=== PATIENT | female | born 1965 | race Caucasian/White ===

== ENCOUNTER 2021-08-26 17:08 | Inpatient (IN) | payer OTHER ==
[~2021-08-26] VITALS: Ht 157.5 cm; Wt 50.7 kg
[2021-08-26] MEDS ORDERED: MORPHINE SULFATE 4 MG/ML SYRINGE IVP ONE (17:15)
[2021-08-26 17:44] LABS: BASOPHILS % (AUTO) 0.2 % (0.0-2.0); EOSINOPHILS % (AUTO) 0.3 % (1.0-6.0); HEMATOCRIT 42.3 % (36-46); HEMOGLOBIN 14.5 g/dL (12.0-16.0); LYMPHOCYTES # (AUTO) 0.6 K/uL (1.0-4.8); MEAN CORPUSCULAR HEMOGLOBIN 32.2 pg (26.0-34.0); MEAN CORPUSCULAR HGB CONC 34.3 G/dL (31.0-37.0); MEAN CORPUSCULAR VOLUME 94 fL (80-100); MONOCYTES # (AUTO) 0.2 K/uL (0.1-1.0); MONOCYTES % (AUTO) 7.5 % (2.0-9.0); NEUTROPHILS # (AUTO) 2.2 K/uL (1.8-7.7); PLATELET COUNT (AUTO) 163 K/uL (150-450); RED BLOOD CELL COUNT(AUTO) 4.51 MIL/uL (4.00-5.20); RED CELL DISTRIBUTION WIDTH 13.4 % (11.5-14.5)
[2021-08-26] MEDS ORDERED: ATORVASTATIN CALCIUM 40 MG TABLET PO ONE (17:45)
[2021-08-26 17:52] LABS: ANION GAP 6 mmol/L (8-16); CALCIUM, TOTAL 8.9 mg/dL (8.8-10.5); CARBON DIOXIDE 31 mmol/L (22-29); CHLORIDE 99 mmol/L (98-107); CREATININE 0.94 mg/dL (0.60-1.30); GLOMERULAR FILTR. RATE CALC > 60 mL/min (>60); GLUCOSE,RANDOM 91 mg/dL (70-110); POTASSIUM 3.1 mmol/L (3.5-5.1); SODIUM SERUM 136 mmol/L (136-145); UREA NITROGEN, BLOOD 8 mg/dL (7-18)
[2021-08-26 17:55] LABS: D-DIMER 0.2 mg/L FEU (0.00-0.50); PROTHROMBIN TIME 10.6 SEC (9.4-11.6)
[2021-08-26 18:02] LABS: B-TYPE NATRIURETIC PEPTIDE 108 pg/mL (0-100)
[2021-08-26] MEDS ORDERED: MIDAZOLAM HCL 2 MG/2 ML VIAL ONE (18:09)
[2021-08-26 18:18] LABS: ALANINE AMINOTRANSFERASE 22 U/L (12-78); ALBUMIN 4.1 g/dL (3.4-5.0); ALKALINE PHOSPHATASE 75 U/L (46-116); ASPARTATE AMINOTRANSFERASE 20 U/L (15-37); BILIRUBIN,TOTAL 0.5 mg/dL (0.1-1.0); CREATINE KINASE, TOTAL ONLY 105 U/L (26-192); TOTAL PROTEIN, SERUM 7.5 g/dL (6.4-8.2)
[2021-08-26] MEDS ORDERED: NITROGLYCERIN/D5W 50 MG/250 ML IV BOTTLE IARTER ONE (18:30)
[2021-08-26] MEDS ORDERED: SODIUM CHLORIDE 0.9% 500 ML IV ONE (18:30)
[2021-08-26] MEDS ORDERED: LIDOCAINE 1% 30 ML/SOD BICARB 8.4% 4 ML SQ ONE (18:30)
[2021-08-26] MEDS ORDERED: IOHEXOL 300 MG/ML 150 ML VIAL IARTER ONE (18:30)
[2021-08-26] MEDS ORDERED: IOHEXOL 300 MG/ML 50 ML VIAL IARTER ONE (18:30)
[2021-08-26] MEDS ORDERED: VERAPAMIL HCL 2.5 MG/ML 2 ML VIAL IARTER ONE (18:30)
[2021-08-26] MEDS ORDERED: HEPARIN SODIUM,PORCINE 1,000 UNITS/ML 10 ML VIAL IARTER ONE (18:30)
[2021-08-26] MEDS ORDERED: HEPARIN SODIUM 1000 UNITS/NS 1,000 ML IARTER ONE (18:30)
[2021-08-26] MEDS ORDERED: HEPARIN SODIUM 1000 UNITS/NS 1,000 ML ONE (19:13)
[2021-08-26] MEDS ORDERED: SODIUM BICARBONATE 50 MEQ/50 ML VIAL ONE (19:13)
[2021-08-26] MEDS ORDERED: IOHEXOL 300 MG/ML 150 ML VIAL ONE (19:13)
[2021-08-26] MEDS ORDERED: IOHEXOL 300 MG/ML 50 ML VIAL ONE (19:13)
[2021-08-26] MEDS ORDERED: IOHEXOL 300 MG/ML 100 ML VIAL ONE (19:13)
[2021-08-26] MEDS ORDERED: LIDOCAINE/PF 1% 30 ML VIAL ONE (19:13)
[2021-08-26 20:00] VITALS: BP 95/52
[2021-08-26] MEDS ORDERED: ZOLPIDEM TARTRATE 5 MG TABLET PO PRN (22:30)
[2021-08-26] MEDS ORDERED: POTASSIUM CHLORIDE 20 MEQ ER TABLET PO PRN (22:30)
[2021-08-26] MEDS ORDERED: ONDANSETRON HCL 4 MG/2 ML VIAL IVP PRN (22:30)
[2021-08-26] MEDS ORDERED: POTASSIUM CHL 10 MEQ/WATER 50 ML IV PRN (22:30)
[2021-08-26] MEDS ORDERED: MAGNESIUM HYDROXIDE SUSPENSION 30 ML UDCUP PO PRN (22:30)
[2021-08-26] MEDS ORDERED: BISACODYL 10 MG RECTAL RECTAL SUPPOSITORY PR PRN (22:30)
[2021-08-27] VITALS (7 sets, daily range): BP systolic 120–150; BP diastolic 49–95
[2021-08-27] MEDS: ACETAMINOPHEN 325 MG TABLET PO PRN ×3 (01:36→16:41)
[2021-08-27 06:03] LABS: BASOPHILS % (AUTO) 0.3 % (0.0-2.0); EOSINOPHILS % (AUTO) 0 % (1.0-6.0); HEMATOCRIT 35.8 % (36-46); HEMOGLOBIN 12.2 g/dL (12.0-16.0); LYMPHOCYTES # (AUTO) 0.5 K/uL (1.0-4.8); LYMPHOCYTES % (AUTO) 14.4 % (22.0-44.0); MEAN CORPUSCULAR HEMOGLOBIN 32.5 pg (26.0-34.0); MEAN CORPUSCULAR HGB CONC 34.2 G/dL (31.0-37.0); MEAN CORPUSCULAR VOLUME 95 fL (80-100); MONOCYTES # (AUTO) 0.3 K/uL (0.1-1.0); MONOCYTES % (AUTO) 8.3 % (2.0-9.0); NEUTROPHILS # (AUTO) 2.8 K/uL (1.8-7.7); PLATELET COUNT (AUTO) 134 K/uL (150-450); RED BLOOD CELL COUNT(AUTO) 3.77 MIL/uL (4.00-5.20); RED CELL DISTRIBUTION WIDTH 13.4 % (11.5-14.5)
[2021-08-27 06:10] LABS: ALANINE AMINOTRANSFERASE 155 U/L (12-78); ALBUMIN 3.4 g/dL (3.4-5.0); ALKALINE PHOSPHATASE 132 U/L (46-116); ANION GAP 6 mmol/L (8-16); ASPARTATE AMINOTRANSFERASE 161 U/L (15-37); BILIRUBIN,TOTAL 0.4 mg/dL (0.1-1.0); CALCIUM, TOTAL 8.1 mg/dL (8.8-10.5); CARBON DIOXIDE 30 mmol/L (22-29); CHLORIDE 100 mmol/L (98-107); CHOL/HDL RATIO 2.3 (3.9-5.7); CHOLESTEROL 158 mg/dL (131-200); CREATININE 0.85 mg/dL (0.60-1.30); GLOMERULAR FILTR. RATE CALC > 60 mL/min (>60); GLUCOSE,RANDOM 120 mg/dL (70-110); HDL CHOLESTEROL 69 mg/dL (40-60); LDL CHOL (CALC.) 67 mg/dL (0-130); SODIUM SERUM 136 mmol/L (136-145); TOTAL PROTEIN, SERUM 6.3 g/dL (6.4-8.2); TRIGLYCERIDES 108 mg/dL (15-150); UREA NITROGEN, BLOOD 14 mg/dL (7-18)
[2021-08-27 06:17] LABS: POTASSIUM 2.9 mmol/L (3.5-5.1)
[2021-08-27] MEDS ORDERED: SODIUM CHLORIDE 0.9% 250 ML IV ONE (06:29)
[2021-08-27] MEDS: PANTOPRAZOLE SODIUM 40 MG DR TABLET PO SCH (08:58)
[2021-08-27] MEDS: DOCUSATE SODIUM 100 MG CAPSULE PO SCH ×2 (08:58→20:10)
[2021-08-27] MEDS: DEXAMETHASONE 4 MG TABLET PO SCH (09:04)
[2021-08-27 15:09] LABS: ALANINE AMINOTRANSFERASE 124 U/L (12-78); ALBUMIN 3.5 g/dL (3.4-5.0); ALKALINE PHOSPHATASE 119 U/L (46-116); ANION GAP 3 mmol/L (8-16); ASPARTATE AMINOTRANSFERASE 80 U/L (15-37); BILIRUBIN,TOTAL 0.3 mg/dL (0.1-1.0); CALCIUM, TOTAL 8.2 mg/dL (8.8-10.5); CARBON DIOXIDE 31 mmol/L (22-29); CHLORIDE 102 mmol/L (98-107); GLOMERULAR FILTR. RATE CALC > 60 mL/min (>60); GLUCOSE,RANDOM 110 mg/dL (70-110); POTASSIUM 4.2 mmol/L (3.5-5.1); SODIUM SERUM 136 mmol/L (136-145); TOTAL PROTEIN, SERUM 6.6 g/dL (6.4-8.2); UREA NITROGEN, BLOOD 12 mg/dL (7-18)
[2021-08-27] MEDS: BENZOCAINE/MENTHOL LOZENGE PO PRN (18:36)
[2021-08-27] MEDS: CARVEDILOL 3.125 MG TABLET PO SCH (20:10)
[2021-08-28] VITALS: BP 105/70
[2021-08-28 04:00] VITALS: BP 135/67
[2021-08-28] MEDS ORDERED: HEPARIN SODIUM,PORCINE 5,000 UNITS/ML VIAL SQ SCH (06:00)
[2021-08-28 08:00] VITALS: BP 124/68
[2021-08-28] MEDS: DOCUSATE SODIUM 100 MG CAPSULE PO SCH ×2 (09:01→21:09)
[2021-08-28] MEDS: CARVEDILOL 3.125 MG TABLET PO SCH ×2 (09:01→21:09)
[2021-08-28] MEDS: PANTOPRAZOLE SODIUM 40 MG DR TABLET PO SCH (09:05)
[2021-08-28] MEDS: DEXAMETHASONE 4 MG TABLET PO SCH (09:05)
[2021-08-28 09:59] LABS: ALANINE AMINOTRANSFERASE 92 U/L (12-78); ALBUMIN 3.6 g/dL (3.4-5.0); ALKALINE PHOSPHATASE 107 U/L (46-116); ANION GAP 5 mmol/L (8-16); ASPARTATE AMINOTRANSFERASE 35 U/L (15-37); BILIRUBIN,TOTAL 0.2 mg/dL (0.1-1.0); CALCIUM, TOTAL 8.8 mg/dL (8.8-10.5); CARBON DIOXIDE 28 mmol/L (22-29); CHLORIDE 105 mmol/L (98-107); GLOMERULAR FILTR. RATE CALC > 60 mL/min (>60); GLUCOSE,RANDOM 162 mg/dL (70-110); POTASSIUM 4.2 mmol/L (3.5-5.1); SODIUM SERUM 138 mmol/L (136-145); THYROID STIMULATING HORMONE 0.47 uIU/mL (0.36-3.74); TOTAL PROTEIN, SERUM 7.1 g/dL (6.4-8.2); UREA NITROGEN, BLOOD 16 mg/dL (7-18)
[2021-08-28 12:00] VITALS: BP 152/82
[2021-08-28] MEDS: ACETAMINOPHEN 325 MG TABLET PO PRN (12:40)
[2021-08-28] MEDS: BENZOCAINE/MENTHOL LOZENGE PO PRN (15:49)
[2021-08-28 16:00] VITALS: BP 149/94
[2021-08-28] MEDS: LOSARTAN POTASSIUM 25 MG TABLET PO SCH (16:31)
[2021-08-28] MEDS: HEPARIN SODIUM,PORCINE 5,000 UNITS/ML VIAL SQ SCH (16:38)
[2021-08-28 20:00] VITALS: BP 121/73
[2021-08-29] VITALS: BP 140/77
[2021-08-29] MEDS: HEPARIN SODIUM,PORCINE 5,000 UNITS/ML VIAL SQ SCH ×3 (00:24→15:54)
[2021-08-29 04:00] VITALS: BP 146/74
[2021-08-29 06:07] LABS: ANION GAP 5 mmol/L (8-16); CALCIUM, TOTAL 8.8 mg/dL (8.8-10.5); CARBON DIOXIDE 30 mmol/L (22-29); CHLORIDE 104 mmol/L (98-107); CREATININE 0.74 mg/dL (0.60-1.30); GLOMERULAR FILTR. RATE CALC > 60 mL/min (>60); GLUCOSE,RANDOM 88 mg/dL (70-110); POTASSIUM 4.1 mmol/L (3.5-5.1); SODIUM SERUM 139 mmol/L (136-145); UREA NITROGEN, BLOOD 23 mg/dL (7-18)
[2021-08-29 08:00] VITALS: BP 151/94
[2021-08-29] MEDS ORDERED: LOSARTAN POTASSIUM 25 MG TABLET PO SCH (09:00)
[2021-08-29] MEDS: DOCUSATE SODIUM 100 MG CAPSULE PO SCH (09:07)
[2021-08-29] MEDS: CARVEDILOL 3.125 MG TABLET PO SCH (09:07)
[2021-08-29] MEDS: LOSARTAN POTASSIUM 25 MG TABLET PO SCH (09:07)
[2021-08-29] MEDS: PANTOPRAZOLE SODIUM 40 MG DR TABLET PO SCH (09:07)
[2021-08-29] MEDS: DEXAMETHASONE 4 MG TABLET PO SCH (09:07)
[2021-08-29] MEDS: BENZOCAINE/MENTHOL LOZENGE PO PRN (09:14)
[2021-08-29] MEDS ORDERED: CARV3 PO (09:40)
[2021-08-29] MEDS ORDERED: LOSA-381 PO (09:41)
[2021-08-29 12:00] VITALS: BP 140/70
[2021-08-29 16:00] VITALS: BP 143/57
== END 2021-08-29 19:20 | disposition home or self-care (01) | DRG 192 ==
LOC: EMS 17:08 → ICU 18:00
PROVIDERS: ADMIT Internal Medicine; ATTEND Internal Medicine
PROC: 4A023N7 Measurement of Cardiac Sampling and Pressure, Left Heart, Percutaneous Approach (ICD-10-PCS; principal; 2021-08-26)
PROC: B2111ZZ Fluoroscopy of Multiple Coronary Arteries using Low Osmolar Contrast (ICD-10-PCS; 2021-08-26)
DX: I51.4 Myocarditis, unspecified (principal); J12.82 Pneumonia due to coronavirus disease 2019; I50.20 Unspecified systolic (congestive) heart failure; I11.0 Hypertensive heart disease with heart failure; U07.1 COVID-19; E87.6 Hypokalemia; I70.1 Atherosclerosis of renal artery; F41.1 Generalized anxiety disorder; D25.9 Leiomyoma of uterus, unspecified; F32.A Depression, unspecified; G44.229 Chronic tension-type headache, not intractable; R79.89 Other specified abnormal findings of blood chemistry; Z88.5 Allergy status to narcotic agent; Z90.49 Acquired absence of other specified parts of digestive tract; Z82.49 Family history of ischemic heart disease and other diseases of the circulatory system; Z88.8 Allergy status to other drugs, medicaments and biological substances
CPT/HCPCS: 71045; 80048; 80053; 80061; 82550; 83036; 83880; 84443; 84484; 85025; 85379; 85610; 85730; 87081; 93005; 93306; 97162; 97165; 99291; G0378; J1644; J2250; J2270; J3480; J3490; J7050; J8540; Q9967; 36415-L1; 36415-TC; U0003